=== PATIENT | female | born 2000 | race Two or more races ===

== ENCOUNTER 2020-05-24 20:51 | Inpatient (IN) | payer OTHER, MEDICAID ==
[~2020-05-24] VITALS: Ht 162.6 cm; Wt 95.5 kg
[2020-05-24] MEDS ORDERED: OXYTOCIN 30U/ 0.9% NaCL 500ML 500 ML IV PRN (22:55)
[2020-05-24] MEDS ORDERED: OXYTOCIN 30U/ 0.9% NaCL 500ML 500 ML IV ONE (22:55)
[2020-05-24] MEDS: D5%-LACTATED RINGERS 1,000 ML IV SCH (22:55)
[2020-05-24] MEDS ORDERED: LACTATED RINGERS 1,000 ML IV SCH (22:55)
[2020-05-24] MEDS ORDERED: CALCIUM CARBONATE 500 MG TAB.CHEW PO PRN (23:00)
[2020-05-24] MEDS ORDERED: FENTANYL PF 100 MCG/2ML IVPush PRN (23:00)
[2020-05-24] MEDS ORDERED: TERBUTALINE 1 MG/ML, 1ML IVPush PRN (23:00)
[2020-05-24] MEDS ORDERED: TERBUTALINE 1 MG/ML, 1ML SQ PRN (23:00)
[2020-05-24] MEDS ORDERED: FENTANYL PF 100 MCG/2ML IV PRN (23:00)
[2020-05-24] MEDS ORDERED: ONDANSETRON 2MG/ML, 2ML IVPush PRN (23:00)
[2020-05-24] MEDS ORDERED: LIDOCAINE 1%, 20ML ONE (23:12)
[2020-05-24] MEDS ORDERED: OXYTOCIN 30U/ 0.9% NaCL 500ML 500 ML ONE (23:12)
[2020-05-24] MEDS ORDERED: MISOPROSTOL 200 MCG TABLET ONE (23:12)
[2020-05-24 23:26] LABS: BASOPHILS # (AUTO) 0.03 x10^3/uL (0-0.1); BASOPHILS % (AUTO) 0 % (0-1); EOSINOPHILS # (AUTO) 0.08 x10^3/uL (0-0.4); EOSINOPHILS % (AUTO) 1 % (1-7); LYMPHOCYTES # (AUTO) 2.41 x10^3/uL (1-3.4); LYMPHOCYTES % (AUTO) 27 % (22-44); MD NO; MEAN CORPUSCULAR HEMOGLOBIN 28.9 pg (27.0-34.8); MEAN CORPUSCULAR VOLUME 90.1 fL (80-100); MEAN PLATELET VOLUME 8.6 fL (7.4-10.4); MONOCYTES % (AUTO) 14 % (2-9); NEUTROPHILS # (AUTO) 5.07 x10^3/uL (1.8-6.8); NEUTROPHILS % (AUTO) 58 % (42-75); PLATELET COUNT 246 x10^3/uL (130-400); RED BLOOD COUNT 3.74 x10^6/uL (3.82-5.3)
[2020-05-24] MEDS ORDERED: PLEASE ENTER HEIGHT AND WEIGHT MC SCH (23:30)
[2020-05-24] MEDS ORDERED: PLEASE ENTER ALLERGIES MC SCH (23:30)
[2020-05-24 23:35] VITALS: BP 140/76
[2020-05-25] MEDS ORDERED: FENTANYL/BUPIV./NS/PF 250 ML EPIDCONT ONE (01:27)
[2020-05-25] MEDS ORDERED: LACTATED RINGERS 1,000 ML IV SCH (01:39)
[2020-05-25] MEDS ORDERED: FENTANYL/BUPIV./NS/PF 250 ML EPIDCONT SCH (01:39)
[2020-05-25] MEDS ORDERED: BUPIVACAINE 0.25% ONE (01:41)
[2020-05-25] MEDS ORDERED: EPHEDRINE 50 MG/ML, 1ML IVPush PRN (02:00)
[2020-05-25] MEDS ORDERED: NALOXONE 0.4 MG/ML, 1ML IVPush PRN (02:00)
[2020-05-25] MEDS ORDERED: LACTATED RINGERS 1,000 ML IVBOLUS PRN (02:00)
[2020-05-25] MEDS ORDERED: ONDANSETRON 2MG/ML, 2ML IV PRN (06:30)
[2020-05-25] MEDS ORDERED: METOCLOPRAMIDE 5 MG/ML, 2ML IV PRN (06:30)
[2020-05-25] MEDS ORDERED: MISOPROSTOL 200 MCG TABLET PR PRN (06:30)
[2020-05-25] MEDS ORDERED: ACETAMINOPHEN 325 MG TABLET PO PRN (06:30)
[2020-05-25] MEDS ORDERED: SIMETHICONE 80 MG CHEW TAB PO PRN (06:30)
[2020-05-25] MEDS ORDERED: HYDROcodone/APAP 5/325 TABLET PO PRN ×2 (06:30)
[2020-05-25] MEDS ORDERED: DOCUSATE 100 MG CAPSULE PO PRN (06:30)
[2020-05-25] MEDS ORDERED: IBUPROFEN 800 MG TABLET PO PRN (06:30)
[2020-05-25] MEDS ORDERED: OXYTOCIN 30U/ 0.9% NaCL 500ML 500 ML ONE (06:34)
[2020-05-25] MEDS: OXYTOCIN 30U/ 0.9% NaCL 500ML 500 ML IV SCH ×2 (06:38→16:15)
[2020-05-25] MEDS: D5%-LACTATED RINGERS 1,000 ML IV SCH ×3 (06:55→22:55)
[2020-05-25 08:30] VITALS: BP 119/78
[2020-05-25] MEDS ORDERED: PRENATAL VIT/IRON/FA 1 EACH TABLET PO SCH (09:00)
[2020-05-25 11:50] VITALS: BP 135/79
[2020-05-25 13:58] LABS: MEAN CORPUSCULAR HEMOGLOBIN 29.5 pg (27.0-34.8); MEAN CORPUSCULAR HGB CONC 32.4 g/dL (32.4-35.8); MEAN CORPUSCULAR VOLUME 90.9 fL (80-100); MEAN PLATELET VOLUME 8.3 fL (7.4-10.4); PLATELET COUNT 216 x10^3/uL (130-400); RED BLOOD COUNT 3.54 x10^6/uL (3.82-5.3); RED CELL DISTRIBUTION WIDTH 14.4 % (9.6-15.2)
[2020-05-25 14:44] LABS: MD YES
[2020-05-25 14:47] LABS: LYMPH#(MANUAL) 2.03 x10^3/uL (1-3.4); LYMPHS% (MANUAL) 12 % (22-44); MONOS#(MANUAL) 1.35 x10^3/uL (0.3-2.7); MONOS% (MANUAL) 8 % (2-9); SEG#(MANUAL) 13.52 x10^3/uL (1.8-6.8); SEGS% (MANUAL) 80 % (42-75)
[2020-05-25 14:48] LABS: <PLATELET ESTIMATE> ADEQUATE; <PLT MORPHOLOGY> NORMAL PLT MORPH; <RBC MORPHOLOGY> NORMAL
[2020-05-25 16:40] VITALS: BP 144/80
[2020-05-25 17:20] VITALS: BP 129/81
[2020-05-25 20:15] VITALS: BP 123/78
[2020-05-26 01:00] VITALS: BP 114/67
[2020-05-26] MEDS: OXYTOCIN 30U/ 0.9% NaCL 500ML 500 ML IV SCH (02:15)
[2020-05-26 04:40] VITALS: BP 117/73
[2020-05-26] MEDS ORDERED: IBUP-1222 PO (08:06)
== END 2020-05-26 10:05 | disposition home or self-care (01) | DRG 807 ==
LOC: LDIP 22:45 → 2NW 05-25 08:30
PROVIDERS: ADMIT Obstetrics & Gynecology Female Pelvic Medicine and Reconstructive Surgery; ATTEND Obstetrics & Gynecology Female Pelvic Medicine and Reconstructive Surgery
PROC: 10E0XZZ Delivery of Products of Conception, External Approach (ICD-10-PCS; principal; 2020-05-25)
PROC: 0HQ9XZZ Repair Perineum Skin, External Approach (ICD-10-PCS; 2020-05-25)
PROC: 3E0R3BZ Introduction of Anesthetic Agent into Spinal Canal, Percutaneous Approach (ICD-10-PCS; 2020-05-25)
PROC: 00HU33Z Insertion of Infusion Device into Spinal Canal, Percutaneous Approach (ICD-10-PCS; 2020-05-25)
DX: O76 Abnormality in fetal heart rate and rhythm complicating labor and delivery (principal); Z37.0 Single live birth; O70.0 First degree perineal laceration during delivery; Z3A.39 39 weeks gestation of pregnancy
CPT/HCPCS: 36415; 85025; 86592; 86850; 86900; 87635; G0378; J2590; J7120